=== PATIENT | female | born 1965 | race Caucasian/White ===

== ENCOUNTER 2018-01-31 12:41 | Emergency (ER) | payer OTHER ==
[2018-01-31 12:48] VITALS: BP 123/79; PULSE 87; RESP 16; TEMP 98.9; O2SAT 99
[2018-01-31] MEDS ORDERED: ACETAMINOPHEN 325 MG TAB PO ONE (13:15)
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
[2018-01-31 13:33] LABS: AUTOMATED NEUTROPHIL # 7.7 TH/MM3 (1.8-7.7); BASOPHIL # 0.1 TH/MM3 (0-0.2); BASOPHIL % 1.1 % (0.0-2.0); EOSINOPHIL # 0.1 TH/MM3 (0-0.4); EOSINOPHIL % 0.5 % (0.0-4.0); HEMATOCRIT 42.6 % (35.0-46.0); HEMOGLOBIN 14.4 GM/DL (11.6-15.3); LYMPH % 18.1 % (9.0-44.0); LYMPHOCYTE # 1.8 TH/MM3 (1.0-4.8); MEAN CELL VOLUME 87.5 FL (80.0-100.0); MEAN CORPUSCULAR HEMOGLOBIN 29.6 PG (27.0-34.0); MEAN CORPUSCULAR HGB CONC 33.8 % (32.0-36.0); MONO % 4.8 % (0.0-8.0); MONOCYTE # 0.5 TH/MM3 (0-0.9); NEUT % 75.5 % (16.0-70.0); PLATELET COUNT 382 TH/MM3 (150-450); RED BLOOD COUNT 4.87 MIL/MM3 (4.00-5.30); RED CELL DISTRIBUTION WIDTH 13.7 % (11.6-17.2); WHITE BLOOD COUNT 10.2 TH/MM3 (4.0-11.0)
[2018-01-31 13:37] VITALS: BP 175/101; PULSE 88; RESP 18; O2SAT 99
[2018-01-31 13:54] LABS: BICARBONATE 25.2 MEQ/L (21.0-32.0); CALCIUM 9.6 MG/DL (8.5-10.1); CREATININE 0.98 MG/DL (0.50-1.00); MAGNESIUM 2.2 MG/DL (1.5-2.5)
[2018-01-31] MEDS ORDERED: LORazepam 2 MG/ML VIAL IV PUSH ONE (14:00)
--- NOTE | 2018-01-31 14:55 | RADRPT ---
EXAM DATE/TIME: 01/31/2018 14:04 [facility] COMPARISON: No previous studies available for comparison. INDICATIONS : Left arm pain, numbness and tingling. RADIATION DOSE: 15.17 CTDIvol (mGy) MEDICAL HISTORY : Spinal stenosis. SURGICAL HISTORY : None. ENCOUNTER: Initial ACUITY: 1 day PAIN SCALE: 4/10 LOCATION: Left neck TECHNIQUE: Volumetric scanning of the cervical spine was performed. Multiplanar reconstructions in the sagittal, coronal and oblique axial planes were performed. Using automated exposure control and adjustment o f the mA and/or kV according to patient size, radiation dose was kept as low as reasonably achievable to obtain optimal diagnostic quality images. DICOM format image data is available electronically f or review and comparison. FINDINGS: VERTEBRAE: Normal vertebral body height. No fracture is visualized. ALIGNMENT: There is 2 mm of anterolisthesis of C7 on T1. Mild kyphosis is present centered at C5-C6. The craniocervical junction and C1-C2 level demonstrate no abnormality. C2-C3: There is mild facet arthrosis bilaterally. No disc herniation, canal stenosis, or neural foraminal st enosis is identified. C3-C4: There is left facet arthrosis. No disc herniation, canal stenosis, or neural foraminal stenosis is id entified. C4-C5: There is mild facet arthrosis bilaterally. No disc herniation, canal stenosis, or neural foraminal st enosis is identified. C5-C6: There is decreased disc height with endplate osteophytes anteriorly and small posterior diffuse disc osteophyte complex. No spinal canal stenosis or neural foraminal stenosis is present. C6-C7: There is decreased disc height on the left aspect of the disc space and there is right facet arthrosi s. No spinal canal stenosis is identified. There is mild left neural foraminal narrowing. C7-T1: There is severe left facet arthrosis and mild right facet arthrosis. No disc herniation, canal stenos is, or neural foraminal stenosis is visualized. There is an 11 mm hypodense left thyroid nodule. Otherwise, the visualized paraspinous structures dem onstrate no acute finding. CONCLUSION: 1. Mild cervical kyphosis with degenerative disc disease at C5-C6 and C6-C7. There is mild left neura l foraminal narrowing at C6-C7. 2. There is 2 mm of anterolisthesis of C7 on T1 secondary to facet arthrosis. 3. There is 11 mm left thyroid nodule. Prosper Pugh MD on January 31, 2018 at 14:46 Board Certified Radiologist. This report was verified electronically.
--- NOTE | 2018-02-01 21:37 | EKG ---
Date Performed: 01/31/2018 Time Performed: 13:44:09 PTAGE: 52 years EKG: Sinus rhythm NORMAL ECG PREVIOUS TRACING : 01/31/2018 13.42 Since the previous tracing, no significant change noted DOCTOR: David Hernandez Interpretating Date/Time 02/01/2018 21:36:02
--- NOTE | 2018-02-01 21:37 | EKG ---
Date Performed: 01/31/2018 Time Performed: 13:42:58 PTAGE: 52 years EKG: Sinus rhythm WITH SINUS ARRHYTHMIA NONSPECIFIC T-WAVE ABNORMALITY ABNORMAL ECG NO PREVIOUS TRACING DOCTOR: David Hernandez Interpretating Date/Time 02/01/2018 21:36:08
== END 2018-01-31 16:52 ==
LOC: NEPC 12:41
DX: M79.602 Pain in left arm (principal); F43.20 Adjustment disorder, unspecified; I49.9 Cardiac arrhythmia, unspecified; R94.31 Abnormal electrocardiogram [ECG] [EKG]; M50.322 Other cervical disc degeneration at C5-C6 level; M50.323 Other cervical disc degeneration at C6-C7 level; E04.1 Nontoxic single thyroid nodule; Z72.0 Tobacco use; F12.10 Cannabis abuse, uncomplicated
CPT/HCPCS: 72125; 80048; 83735; 85025; 93005